=== PATIENT | male | born 1965 | race Caucasian/White ===

== ENCOUNTER → 2018-01-07 | Outpatient (CLI) | payer OTHER | LOC: M.MRI 12-27 13:32 | DX: M25.512 Pain in left shoulder (principal); M54.2 Cervicalgia; M43.22 Fusion of spine, cervical region; X50.9XXA Other and unspecified overexertion or strenuous movements or postures, initial encounter; M75.102 Unspecified rotator cuff tear or rupture of left shoulder, not specified as traumatic; G89.29 Other chronic pain ==

== ENCOUNTER → 2018-03-26 | Day surgery (SDC) | payer OTHER ==
[~2018-03-26] MED LIST: ALLOPURINOL 10100 M1 PO; ANDROGEL5 GM TOP; FENOGLIDE120 MG PO; NORCO 5-325 TA1 EACH PO; SYNTHROID112 MC1 PO
--- NOTE | ~2018-03-26 | OP ---
[address] [address] OPERATIVE REPORT Name: JOHNVIRA BIRMINGHAM Room: [facility].#: [id number] Admission: 03/26/18 Attend Phys: Rangel Holbrook, Discharge: Date of : 65 Report #: [id number] THIS REPORT FOR: //name// CC: Raj Holbrook DICTATED BY: Yovani Galvan DO DATE OF SERVICE: 03/26/2018 DIAGNOSES: 1. Left shoulder partial thickness undersurface rotator cuff tear (less than 10%). 2. Type 2 SLAP tear. 3. Osteochondritis dissecans lesion humeral head. 4. Left shoulder impingement syndrome. PROCEDURE: Left shoulder arthroscopic surgery with biceps tenodesis, debridement of undersurface rotator cuff and labrum, chondroplasty of the humeral head and subacromial decompression. SURGEON: Rangel Holbrook DO. METEOROLOGY PROFESSOR: Yovani Galvan DO. ANESTHESIA: Regional block and general anesthetic. ESTIMATED BLOOD LOSS: 5 mL. ANTIBIOTICS: Ancef 2 grams IV preop. SPECIMENS: None. DRAINS: None. COMPLICATIONS: None. CONDITION: The patient is stable to PACU. INDICATIONS FOR PROCEDURE: The patient is a pleasant 53-year-old male who has had ongoing left shoulder pain for some time, has difficulty with overhead activities, associated weakness, is recommended to have an MRI, demonstrating partial thickness rotator cuff tear as well as a SLAP tear that he would be a candidate for arthroscopic surgery with addressing the SLAP tear in the form of the biceps tenodesis. All risks, benefits, complications, indications, alternatives were reviewed. The patient wished to proceed. [address] [address] OPERATIVE REPORT Name: VIRA LOPEZ Room: [facility].#: [id number] Admission: 03/26/18 Attend Phys: Rangel Holbrook, Discharge: Date of : 65 Report #: [id number] DESCRIPTION OF PROCEDURE: The patient brought to the operative suite after receiving a block in preoperative holding area, was positioned in beach chair position. Left upper extremity was then sterilely prepped and draped in standard fashion. Final timeout was taken to ensure correct patient, procedure, operative site, everybody in the room was in agreeance. At that time, an 11 blade scalpel was used to establish posterior portal incision. Blunt trocar was introduced followed by arthroscopic camera. Upon entering the shoulder, subscapularis tendon was visualized without pathology. There was minimal undersurface rotator cuff degenerative fraying less than 10% of the thickness of the footprint of the tendon. There was some tendinosis of the biceps tendon as well as a type 2 SLAP tear present. There was also a large chondral defect involving the posterior inferior portion of the humeral head. This was a square shaped in nature. There was also a free fragment floating down in the gutter likely from this lesion. At this point, an 18-gauge needle was used to establish anterior portal incision. Arthroscopic shaver was introduced and the loose body was removed. Chondroplasty was performed of the humeral head. We then established a cannula anteriorly, passed a FiberLink suture. Using Loop 'N' Tack technique, we performed a biceps tenodesis utilizing a 4.75 mm Arthrex SwiveLock. This was done high in the bicipital groove just above the subscapularis tendon insertion. Once this portion of the case was completed, final images were taken. The stump of the biceps was detached. The labrum was debrided with arthroscopic shaver. We then transitioned to a subacromial viewing portal, created a lateral subacromial portal, performed subacromial decompression with arthroscopic shaver as well as radiofrequency ablator. Once this was done, there was no bursal-sided tearing noted. At this point we lavaged the shoulder. All our instruments were removed. Portals were closed with 4-0 nylon, Xeroform, 4 x 4s, ABD, Medipore tape applied. The patient awoken from anesthesia and brought to PACU in stable condition. By: [id number] Holbrook DO /chance
== END | disposition home or self-care (01) ==
LOC: M.SUR 06:45
DX: M75.112 Incomplete rotator cuff tear or rupture of left shoulder, not specified as traumatic (principal); S43.432A Superior glenoid labrum lesion of left shoulder, initial encounter; M93.2 Osteochondritis dissecans; M75.42 Impingement syndrome of left shoulder; M75.22 Bicipital tendinitis, left shoulder; Z88.8 Allergy status to other drugs, medicaments and biological substances; Z79.899 Other long term (current) drug therapy; X58.XXXA Exposure to other specified factors, initial encounter; Y93.89 Activity, other specified; Y92.89 Other specified places as the place of occurrence of the external cause; Y99.8 Other external cause status

== ENCOUNTER → 2018-07-25 | Outpatient (CLI) | payer OTHER ==
[2018-07-25 13:15] LABS: ABSOLUTE BASOPHILS 0.1 thou/uL (0.0-0.2); ABSOLUTE EOSINOPHILS 0.2 thou/uL (0.0-0.7); ABSOLUTE LYMPHOCYTES 2.9 thou/uL (0.8-5.3); ABSOLUTE MONOCYTES 0.6 thou/uL (0.0-1.2); ABSOLUTE NEUTROPHILS 6.3 thou/uL (1.6-8.1); BASOPHILS 0.6 %; EOSINOPHILS 2.1 %; HEMATOCRIT 40.7 % (42.0-52.0); HEMOGLOBIN 13.8 gm/dL (14.0-18.0); LYMPHOCYTES 28.6 %; MCH 29.4 pg (26.0-34.0); MCHC 33.8 g/dL (28.0-37.0); MPV 8.5 fl. (7.2-11.1); NUCLEATED RBCS 0 /100WBC; PLATELET COUNT* 363 thou/uL (150-400); POLYS 62.7 %; RBC 4.67 mil/uL (4.50-6.00); RDW-CV 14.3 % (10.5-14.5); WBC 10.1 thou/uL (4.0-11.0)
[2018-07-25 13:19] LABS: URINE BILIRUBIN NEGATIVE (Negative); URINE BLOOD NEGATIVE (Negative); URINE CLARITY CLEAR; URINE COLOR YELLOW; URINE GLUCOSE-RANDOM NEGATIVE (Negative); URINE KETONES NEGATIVE (Negative); URINE LEUKOCYTES-REFLEX NEGATIVE (Negative); URINE NITRITE-REFLEX NEGATIVE (Negative); URINE PROTEIN NEGATIVE (Negative); URINE UROBILINOGEN 0.2 E.U./dl (0.2-1.0)
[2018-07-25 13:29] LABS: ALKALINE PHOSPHATASE 59 U/L (46-116); ANION GAP 8 mmol/L (7-16); BUN 20 mg/dL (7-18); CHLORIDE 103 mmol/L (98-107); CHOLESTEROL 228 mg/dL (<200); CO2 27 mmol/L (21-32); CREATININE 1.6 mg/dL (0.6-1.3); GLUCOSE 91 mg/dL (70-99); HDL CHOLESTEROL 38 mg/dL (>40); LDL CHOLESTEROL 146 mg/dL (<100); POTASSIUM 4.5 mmol/L (3.5-5.1); SGOT 35 U/L (15-37); SGPT 53 U/L (30-65); SODIUM 138 mmol/L (136-145); TOTAL BILIRUBIN 0.3 mg/dL (<0.1-1.0); TOTAL PROTEIN 7.7 g/dL (6.4-8.2); TRIGLYCERIDE 223 mg/dL (<150); VLDL 45 mg/dL (<40)
[2018-07-25 13:32] LABS: SERUM ASSESSMENT Clear
[2018-07-25 18:06] LABS: TESTOSTERONE 276 ng/dL (264-916)
[2018-07-27 05:09] LABS: FREE TESTOSTERONE 7.5 pg/mL (7.2-24.0)
[2018-07-27 09:08] LABS: % FREE PSA 39.5 % (()); FREE PSA 0.75 ng/mL
== END ==
LOC: M.LAB 12:37
PROVIDERS: Internal Medicine
DX: E03.9 Hypothyroidism, unspecified (principal)